=== PATIENT | male | born 1965 | race Caucasian/White ===

== ENCOUNTER → 2016-05-08 | Outpatient (CLI) | payer OTHER | END | disposition home or self-care (01) | LOC: PF 09:51 | PROVIDERS: ATTEND Internal Medicine Pulmonary Disease | DX: J44.9 Chronic obstructive pulmonary disease, unspecified (principal) | CPT/HCPCS: 94060 ==

== ENCOUNTER 2016-06-17 14:46 | Emergency (ER) | payer OTHER ==
[~2016-06-17] VITALS: Ht 188 cm; Wt 77.1 kg
[2016-06-17 14:46] VITALS: BP 144/108
[2016-06-17] MEDS ORDERED: PROAIR HFA8.5 GM INH (15:11)
[2016-06-17] MEDS ORDERED: CAPSAICIN (15:11)
[2016-06-17] MEDS ORDERED: ATOR40TA59 PO (15:11)
[2016-06-17] MEDS ORDERED: SPIR25TA PO (15:11)
[2016-06-17] MEDS ORDERED: DEXL60CA PO (15:11)
[2016-06-17] MEDS ORDERED: FURO-68 PO (15:11)
[2016-06-17] MEDS ORDERED: OXYMETAZOLINE 0.05% (15:11)
[2016-06-17] MEDS ORDERED: voltaren (15:11)
[2016-06-17] MEDS ORDERED: DIGO125T PO (15:11)
[2016-06-17] MEDS ORDERED: RANI150T6 PO (15:11)
[2016-06-17] MEDS ORDERED: FOLI1TAB16 PO (15:11)
[2016-06-17] MEDS ORDERED: LISI40TA PO (15:11)
[2016-06-17] MEDS ORDERED: PARO20TA55 PO (15:11)
[2016-06-17] MEDS ORDERED: CARV25TA2 PO (15:11)
[2016-06-17] MEDS ORDERED: NITROGLYCERIN SUBLINGUAL 0.4 MG BOTTLE OF 25. SL PRN (15:45)
--- NOTE | 2016-06-17 15:57 | PHYS DOC ---
Past Medical History Past Medical History: Unknown Past Surgical History: Other Additional Past Surgical Histo: foot, hip Alcohol Use: Occasionally Drug Use: None Adult General Chief Complaint Chief Complaint: RAPID HEART RATE HPI HPI Patient is a 50 year old gentleman who has a history significant for SVTs in the past and reports she's had multiple admissions and workups for this. Patient reports that he is visiting from [place] and has been up here for several months visiting his son. Patient reports as recent as 2 weeks ago he was admitted to 2 different [facility] over the last 2 weeks for SVT. Patient reports today he decided to throw his football with his son when he went outside after approximately 2-3 minutes during football he felt dizzy and felt his heart races if he was back in SVT. Patient went to his house and try to relax for approximately an hour and he reports his symptoms did not subside. Patient reports she was having some shortness of breath, chest pain, pain in his arm, diaphoresis. Patient called EMS. Upon EMS arrival and IV was placed and adenosine was given to the patient without any success and cardioversion. At that time per the EMS crew the patient was cardioverted with 50 J. Prior to cardioversion patient was given 5 mg of IM Versed. Patient denies any recent fevers shaking chills cough or URI symptoms. Patient reports she was astigmatic prior to throwing the football today. 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 Patient reports he has a history significant for cardiac myopathy, CAD, cardioversion 2, hypertension, COPD. Upon arrival to the ED patient is currently asymptomatic and was requesting to be released and discharged from the hospital. I had a long discussion with the patient regarding my concerns with his symptoms and required to be cardioverted by EMS. I discussed with the patient that my recommendation would be admission at least overnight in order to monitor his heart enzymes as well as monitor his cardiac rhythm and possibly alter his medications if needed. Patient is absolutely adamant about being admitted to the hospital. Patient reports she's been admitted several times in the past for this and he does not think that he needs to be admitted on this occasion. Patient reports that he understands the risks and benefits of admission versus discharge. Patient reports "my time is limited on this earth and wanted it was better with my son". Given that the patient understands all the risks and benefits I will allow him to sign out AGAINST MEDICAL ADVICE. Patient does appear to be competent and has a capacity to make decisions. Patient encouraged to return to the ER if he changes his mind or has any new or concerning symptoms. Patient's physical exam ER was remarkable for tachycardia. Patient's heart rate was 120 to 1:30. Does appear to be sinus tach. Patient's lungs are clear no wheezing rales or rhonchi. Patient is alert awake oriented 3. Patient is a nonfocal neuro exam. A/P SVT: Patient is clinically and hemodynamically stable at this time. Patient is tachycardic. Patient is refusing admission to the hospital despite the risks that I discussed with him. Patient has signed out AGAINST MEDICAL ADVICE and has reported that if he does change his mind, he has any new symptoms, or anything concerning or return to the ER. Otherwise he will follow-up with his railroad emergency services manager. Review of Systems Review of Systems Constitutional: Denies fever or chills [] Eyes: Denies change in visual acuity, redness, or eye pain [] HENT: Denies nasal congestion or sore throat [] Respiratory: Denies cough or shortness of breath [] Cardiovascular: No additional information not addressed in HPI [] GI: Denies abdominal pain, nausea, vomiting, bloody stools or diarrhea [] : Denies dysuria or hematuria [] Musculoskeletal: Denies back pain or joint pain [] Integument: Denies rash or skin lesions [] Neurologic: Denies headache, focal weakness or sensory changes [] Endocrine: Denies polyuria or polydipsia [] Current Medications Current Medications Current Medications Medications (Trade) Dose Ordered Sig/Milagro Start Time Stop Time Status Last Admin Dose Admin Nitroglycerin 0.4 mg 0.4 mg PRN Q5MIN PRN 06/17/16 15:45 06/18/16 15:44 Sodium Chloride (Iv Sodium Chloride 0.9% 1000ml Bag) 1,000 ml @ 1,000 mls/hr Q1H 06/17/16 16:00 06/17/16 16:59 Allergies Allergies Allergies Coded Allergies Type Severity Reaction Last Updated Verified No Known Drug Allergies 06/17/16 No Physical Exam Physical Exam Constitutional: Well developed, well nourished, no acute distress, non-toxic appearance. [] HENT: Normocephalic, atraumatic, bilateral external ears normal, oropharynx moist, no oral exudates, nose normal. [] Eyes: PERRLA, EOMI, conjunctiva normal, no discharge. [] Neck: Normal range of motion, no tenderness, supple, no stridor. [] Cardiovascular:Heart rate regular rhythm, no murmur [] Lungs & Thorax: Bilateral breath sounds clear to auscultation [] Abdomen: Bowel sounds normal, soft, no tenderness, no masses, no pulsatile masses. [] Skin: Warm, dry, no erythema, no rash. [] Back: No tenderness, no CVA tenderness. [] Extremities: No tenderness, no cyanosis, no clubbing, ROM intact, no edema. [] Neurologic: Alert and oriented X 3, normal motor function, normal sensory function, no focal deficits noted. [] Psychologic: Affect normal, judgement normal, mood normal. [] Current Patient Data Vital Signs Vital Signs Date Time Temp Pulse Resp B/P Pulse Ox O2 Delivery O2 Flow Rate FiO2 06/17/16 14:46 98.0 121 18 144/108 95 Room Air 98.0 Lab Values Laboratory Tests Test 06/17/16 14:51 White Blood Count 4.4x10^3/uL (4.0-11.0) Red Blood Count 5.20x10^6/uL (4.30-5.70) Hemoglobin 15.7g/dL (13.0-17.5) Hematocrit 46.8% (39.0-53.0) Mean Corpuscular Volume 90fL (79-100) Mean Corpuscular Hemoglobin 30pg (25-35) Mean Corpuscular Hemoglobin Concent 34g/dL (31-37) Red Cell Distribution Width 16.4% (11.5-14.5) H Platelet Count 93x10^3/uL (140-400) L Neutrophils (%) (Auto) 52% (31-73) Lymphocytes (%) (Auto) 34% (24-48) Monocytes (%) (Auto) 13% (0-9) H Eosinophils (%) (Auto) 1% (0-3) Basophils (%) (Auto) 0% (0-3) Neutrophils # (Auto) 2.3x10^3uL (1.8-7.7) Lymphocytes # (Auto) 1.5x10^3/uL (1.0-4.8) Monocytes # (Auto) 0.6x10^3/uL (0.0-1.1) Eosinophils # (Auto) 0.0x10^3/uL (0.0-0.7) Basophils # (Auto) 0.0x10^3/uL (0.0-0.2) Laboratory Tests 06/17/16 14:51 EKG EKG [] Interpretation Time: There is no pre-cardioversion monitor strip from EMS. I contacted the EMS office and spoke to Genet who reports that she was on the run. She reports that his heart rate was 180 in the interim 6 of adenosine followed by 12 adenosine without any change. Patient was given 5 of Versed IM and cardioverted with 50 J. At that time the patient was cardioverted. I have requested that another centimeter copy of the pre-cardioversion EKG. Radiology/Procedures Radiology/Procedures [] Course & Med Decision Making Course & Med Decision Making Pertinent Labs and Imaging studies reviewed. (See chart for details) [] Dragon Disclaimer Dragon Disclaimer This electronic medical record was generated, in whole or in part, using a voice recognition dictation system. Departure Departure Impression: Primary Impression: SVT (supraventricular tachycardia) Additional Impressions: Left against medical advice Chest pain Disposition: 07 AGAINST MEDICAL ADVICE Condition: GUARDED Referrals: KEYON BRODY MD (PCP) Patient Instructions: Chest Pain (Nonspecific), Form - Rejection of Medical Treatment (AMA), Supraventricular Tachycardia Additional Instructions: Please return to the ER if you change your mind about being admitted to the hospital. Return to the ER if any new or concerning symptoms. Problem Qualifiers STIVEN BENNETT MD Jun 17, 2016 15:57
[2016-06-17] MEDS ORDERED: IV NORMAL SALINE 1000ML BAG 1,000 ML IV SCH (16:00)
--- NOTE | 2016-06-17 16:13 | RAD ---
Indication supraventricular tachycardia. Status post electrical cardioversion. Protocol study. A single view of the chest was obtained. No prior imaging is available. Heart size is normal. There is mild interstitial prominence which in the absence of prior examinations for comparison purposes is of uncertain etiology. This may represent mild interstitial edema. An interstitial inflammatory process or chronic process such as fibrosis are not excluded. There is no focal consolidated pneumonia. Significant pleural fluid is not present. There is no pneumothorax. IMPRESSION: Mild interstitial prominence. See above discussion. No focal process seen in the chest
[2016-06-17 16:14] LABS: BASO % 0 % (0-3); EOS % 1 % (0-3); HEMATOCRIT 46.8 % (39.0-53.0); HEMOGLOBIN 15.7 g/dL (13.0-17.5); LYMPH # 1.5 x10^3/uL (1.0-4.8); LYMPH % 34 % (24-48); MEAN CORPUSCULAR HEMOGLOBIN 30 pg (25-35); MEAN CORPUSCULAR HGB CONC 34 g/dL (31-37); MEAN CORPUSCULAR VOLUME 90 fL (79-100); MONO % 13 % (0-9); NEUT % 52 % (31-73); PLATELET COUNT 93 x10^3/uL (140-400); RED CELL DISTRIBUTION WIDTH 16.4 % (11.5-14.5); WHITE BLOOD COUNT 4.4 x10^3/uL (4.0-11.0)
[2016-06-17 16:33] LABS: CALCIUM 9.3 mg/dL (8.5-10.1); CREATININE 0.7 mg/dL (0.7-1.3); GFR 119.4; POTASSIUM 4.1 mmol/L (3.5-5.1)
[2016-06-17 16:39] LABS: DIRECT BILIRUBIN 0.1 mg/dL (0.0-0.2); TOTAL BILIRUBIN 0.6 mg/dL (0.2-1.0); TOTAL PROTEIN 8.8 g/dL (6.4-8.2)
--- NOTE | 2016-06-18 06:47 | EKG ---
[facility] [address] [place] [address] Test Date: 2016-06-17 Test Time: 14:51:24 Pat Name: TJ COFFEY Department: Room: Gender: Project/Production Manager Imaging: : 1965 Requested By: STIVEN BENNETT Order Number: [id number] Reading MD: Measurements Intervals [place] Rate: 122 P: -46 [place]: 100 QRS: 37 QRSD: 100 T: 55 QT: 320 QTc: 457 Interpretive Statements SINUS TACHYCARDIA LEFT ATRIAL ABNORMALITY QRS(T) CONTOUR ABNORMALITY CONSIDER ANTEROLATERAL MYOCARDIAL DAMAGE ABNORMAL ECG RI6.01 No previous ECG available for comparison
== END 2016-06-17 16:05 | disposition left against medical advice (07) ==
LOC: ER 14:46
DX: I47.1 Supraventricular tachycardia (principal); R07.9 Chest pain, unspecified; R06.02 Shortness of breath; I11.9 Hypertensive heart disease without heart failure; J44.9 Chronic obstructive pulmonary disease, unspecified; I25.10 Atherosclerotic heart disease of native coronary artery without angina pectoris; I10 Essential (primary) hypertension
CPT/HCPCS: 36415; 71010; 80048; 80076; 83880; 84443; 84484; 85027; 93005; 99285-25

== ENCOUNTER → 2016-07-12 | Outpatient (CLI) | payer OTHER ==
[2016-06-17 14:46] VITALS: BP 144/108
[~2016-07-12] MED LIST: ATOR40TA59 PO; CAPSAICIN; CARV25TA2 PO; DEXL60CA PO; DIGO125T PO; FOLI1TAB16 PO; FURO-68 PO; LISI40TA PO; OXYMETAZOLINE 0.05%; PARO20TA55 PO; PROAIR HFA8.5 GM INH; RANI150T6 PO; SPIR25TA PO; voltaren
--- NOTE | 2016-07-12 11:05 | RAD ---
Examination: 2 views of the right knee History: History of right knee pain Comparison: None available Findings: The alignment of the knee joint grossly appears unremarkable. There are cortical changes identified in the proximal tibia particularly anteriorly probably old fracture. Mild joint space loss identified in the medial compartment. Minimal joint effusion identified. Impression 1. No obvious acute osseous findings. 2. Probable old fracture of the proximal tibia. MRI of the knee may be considered if internal derangement is suspected.
== END | disposition home or self-care (01) ==
LOC: RAD 09:43
PROVIDERS: ATTEND Family Medicine
DX: M25.461 Effusion, right knee (principal); S89.91XD Unspecified injury of right lower leg, subsequent encounter; X58.XXXD Exposure to other specified factors, subsequent encounter
CPT/HCPCS: 73560